=== PATIENT | male | born 1940 | race Caucasian/White ===

== ENCOUNTER 2016-12-12 10:19 | Day surgery (SDC) | payer OTHER ==
[~2016-12-12 10:19] MED LIST: Acetaminophen TAB* 325 MG PO PRN; Buffered Lidocaine 0.9% SYRIN* 5 ML/SYR SYRINGE INTRADERM ONE
[2016-12-12] MEDS ORDERED: Midazolam* 1 MG/ML 2 ML VIAL (2 MG) ONE (13:28)
[2016-12-12] MEDS ORDERED: Cyclopentolate 1% OPTH.SOL* 2 ML BTL ONE (13:58)
[2016-12-12] MEDS ORDERED: Neomycin/Polymy/Dex OPTH.SUSP* MAXITROL 0.1% 5 ML ONE (13:58)
[2016-12-12] MEDS ORDERED: Flurbiprofen 0.03% OPTH.SOL* 2.5 ML BTL ONE (13:58)
[2016-12-12] MEDS ORDERED: Buffered Lidocaine 0.9% SYRIN* 5 ML/SYR SYRINGE ONE (13:58)
[2016-12-12] MEDS ORDERED: Lidocaine 1% MPF wEPI 200,000* 30 ML SDV ONE (13:58)
[2016-12-12] MEDS ORDERED: Proparacaine 0.5% OPHTH.SOL* 15 ML BTL ONE (13:58)
[2016-12-12] MEDS ORDERED: Povidone Iodine 5% OPTH* 30 ML BTL ONE (13:58)
[2016-12-12] MEDS ORDERED: acetaZOLAMIDE TAB* 250 MG ONE (13:58)
[2016-12-12] MEDS ORDERED: Lidocaine 1% MPF* 2 ML VIAL ONE (13:58)
[2016-12-12] MEDS ORDERED: Phenylephrine 2.5% OPTH.SOL* 2 ML BTL ONE (13:58)
[2016-12-12 14:11] VITALS: BP 112/68
--- NOTE | 2016-12-13 11:09 | OP ---
DATE OF OPERATION: 12/12/16 - [facility] DATE OF : 38 SURGEON: Garcia Hendricks M.D. PREOPERATIVE DIAGNOSIS: Cataract, left eye. POSTOPERATIVE DIAGNOSIS: Cataract, left eye. OPERATIVE PROCEDURE: Phacoemulsification, left eye with IOL. DESCRIPTION OF PROCEDURE: The patient was brought to the operating room after being given 1/2% Alcaine with epinephrine drops in the preoperative area. The eye was prepped and draped in the usual sterile fashion. Sterile drape and eyelid speculum were placed. Again, topical 1/2% Alcaine with epinephrine was given. A paracentesis incision was made at the 3 o'clock position with the No.75 blade. Clear cornea incision 2.2 x 2.2-mm was created at the 6 o'clock position starting at the anterior limbus using the 2.2-mm keratome. The anterior chamber was irrigated with 0.4 mL of 1% non-preservative intracameral lidocaine and filled with DisCoVisc. A capsulorrhexis was completed using the cystotome and the Utrata forceps. Hydrodissection was performed with balanced salt solution. The lens nucleus was removed with the Phacoemulsification handpiece without incident. Cortex was removed with the irrigation-aspiration handpiece. The capsular bag was re-inflated using DisCoVisc and an [id number] implant was inserted with the shooter. The irrigation-aspiration handpiece was used to remove all residual DisCoVisc. The eye was refilled with balanced salt solution and the wound checked and found to be watertight. Topical Maxitrol drops were given. [id number]/[facility] #: [id number] MTDD
== END 2016-12-12 14:23 | disposition home or self-care (01) ==
LOC: OREAST 10:19
PROVIDERS: ATTEND Specialist
DX: H25.812 Combined forms of age-related cataract, left eye (principal); E11.3293 Type 2 diabetes mellitus with mild nonproliferative diabetic retinopathy without macular edema, bilateral; Z79.84 Long term (current) use of oral hypoglycemic drugs; I10 Essential (primary) hypertension
CPT/HCPCS: A9270-GY; J2001; J2250; V2632

== ENCOUNTER 2017-10-19 18:31 | Emergency (ER) | payer OTHER ==
[2017-10-19 18:36] VITALS: BP 149/80
[2017-10-19] MEDS ORDERED: DOXYcycline CAP(*) 100 MG ONE (19:48)
[2017-10-19] MEDS ORDERED: DOXYcycline CAP(*) 100 MG PO ONE (19:54)
--- NOTE | 2017-10-19 23:50 | ED ---
Romario Olson Tecjoon, scribed for Fide Washington MD on 10/19/17 at 1950 . Bite Injury/Animal - HPI Summary HPI Summary: This patient is a 77 year old male presenting to [facility] with a chief complaint of tick bite since 1 days ago. The tick bite was on the left flank, under the left arm, and the patient stated he picked it out, but he couldnt get the head out. There is a raised erythematous area where the tick bite occurred. The pain is rated 0/10 in severity. Symptoms aggravated by nothing. Symptoms alleviated by nothing. The patient treated the sx with nothing [place]. Patient denies any other problems at this time. - History of Current Complaint Chief Complaint: EDAnimalBite Stated Complaint: TICK BITE Time Seen by Provider: 10/19/17 19:34 Hx Obtained From: Patient Onset of Injury: Happened days ago - 1 Type of Bite: Wild Animal - tick Hx of Bite: Unprovoked Has Animal Been Immunized?: N/A Severity Initially: Mild Severity Currently: Mild Pain Intensity: 0 Pain Scale Used: 0-10 Numeric Character: Puncture Aggravating Factor(s): Nothing Alleviating Factor(s): Nothing Associated Signs And Symptoms: Positive: Erythema, Swelling Animal Available for Observation: No Animal Control Notified: No - Risk Factors Infection/Sepsis Risk Factors: Diabetes - type II, oral meds only - Allergies/Home Medications Allergies/Adverse Reactions: Allergies Allergy/AdvReac Type Severity Reaction Status Date / Time No Known Allergies Allergy Verified 10/19/17 18:36 PMH/Surg Hx/FS Hx/Imm Hx Previously Healthy: No Endocrine/Hematology History: Reports: Hx Diabetes - Type II, controlled with medication and diet Cardiovascular History: Reports: Hx Hypertension - controlled with medication Respiratory History: Reports: Other Respiratory Problems/Disorders - pleurisy Musculoskeletal History: Reports: Hx Arthritis - right shoulder injury after fall Sensory History: Reports: Hx Cataracts - right eye done 2009 Denies: Hx Contacts or Glasses - reading, Hx Glaucoma, Hx Hearing Aid Opthamlomology History: Reports: Hx Cataracts - right eye done 2009 Denies: Hx Contacts or Glasses - reading, Hx Glaucoma - Surgical History Surgery Procedure, Year, and Place: inguinal hernia, R & L, surgery in the Hx Anesthesia Reactions: No Infectious Disease History: No Infectious Disease History: Denies: Traveled Outside the [place] in Last 30 Days - Family History Known Family History: Positive: Other - neuritis, pernicious anemia - Social History Lives: Alone Alcohol Use: Rare Alcohol Amount: once a year, a beer Hx Substance Use: No Substance Use Type: Reports: None Hx Tobacco Use: No Smoking Status (MU): Never Smoked Tobacco Review of Systems Constitutional: Negative Eyes: Negative Cardiovascular: Negative Respiratory: Negative Gastrointestinal: Negative Positive: Other - raised erythematous area surrouding tick bite under left arm Neurological: Negative Psychological: Normal All Other Systems Reviewed And Are Negative: Yes Physical Exam - Summary Physical Exam Summary: Appearance: well appearing, minimal pain distress, Well-nourished, afebrile Skin: Warm, color reflects adequate perfusion, 2 cm raised erythematous area where tick bite was under left arm on lateral chest wall, No drainage, no fluctuance. Head: Normal Head/Face inspection Eyes: Conjunctiva clear ENT: Normal inspection Neck: Supple, no nodes, no JVD. Respiratory: Lungs clear, Normal breath sounds, no respiratory distress Cardio: RRR, No murmur, pulses normal, brisk capillary refill Abdomen: soft, nontender Bowel sounds: present Musculoskeletal: Strength Intact/ ROM intact. No calf tenderness. No edema. Psychological: Normal Neuro: Alert, muscle tone normal, no focal deficit Triage Information Reviewed: Yes Vital Signs On Initial Exam: Initial Vitals Temp Pulse Resp BP Pulse Ox 98.9 F 90 16 149/80 97 10/19/17 18:34 10/19/17 18:34 10/19/17 18:34 10/19/17 18:34 10/19/17 18:34 Vital Signs Reviewed: Yes Diagnostics - Vital Signs Vital Signs Temp Pulse Resp BP Pulse Ox 10/19/17 18:34 98.9 F 90 16 149/80 97 - Laboratory Lab Statement: Any lab studies that have been ordered have been reviewed, and results considered in the medical decision making process. Bite Injury Course/Dx - Course Course Of Treatment: This patient is a 77 year old male presenting to [facility] with a chief complaint of tick bite since 1 days ago. The tick bite was on the left lateral chest wall, under the left arm, and the patient stated he picked it out, but he couldnt get the head out. There is a raised erythematous area where the tick bite occurred. Pt is a type II DM on oral medication only and is well controlled. PROCEDURE: TIME OUT, Bronte precautions followed. Consent from pt prior to procedure: Tick head removal. No local anesthesia. #20 G needle used to probe wound and remove black FB consistent with tick head. No drainage. Patient will be discharged with a dx of tick bite and a prescription for doxycycline to treat possible tick exposure and Lyme disease, and possible cellulitis after pt attempts at removal at home without success, in this Type II DM pt. Patient is advised to follow up with PCP in 2 days and to discuss duration of antibiotic treatment. The patient is agreeable with this plan. - Diagnoses Differential Diagnosis/HQI/PQRI: Positive: Cellulitis, Superficial Infection, Other - FB, abscess Provider Diagnosis: Tick bite, Diabetes Discharge - Sign-Out/Discharge Documenting (check all that apply): Discharge/Admit/Transfer - Discharge Plan Condition: Stable Disposition: HOME Prescriptions: DOXYcycline CAP(*) [DOXYcycline 100MG CAP(*)] 100 mg PO BID #42 cap Patient Education Materials: Tick Bite (ED) Referrals: Honey MENESES,Tesfaye Varma [Primary Care Provider] - 2 Days Additional Instructions: We gave you one dose of doxycycl[facility]. We have also prescribed doxycycline 100mg twice a day for 3 weeks. You can discuss with your doctor about how long you should take this, but we have given you full treatment for possible Lyme disease, and to treat any infection or abscess that may be started under the site of where the tick was after you tried digging out the rest of the tick. We did a sterile procedure with a needle to try to drain any pus and remove the head and did not get any pus, and believe we removed the head of the tick. We gave you a bandaid and antibiotic ointment. You should use antibiotic ointment and a bandaid and change that every day. Have follow up with your doctor in 7-10 days definite. Return to the ER if you have any new or worsening symptoms. - Billing Disposition and Condition Condition: STABLE Disposition: HOME The documentation as recorded by the Romario beckwith Tecjoon accurately reflects the service I personally performed and the decisions made by , Fide Washington MD.
== END 2017-10-19 20:12 | disposition home or self-care (01) ==
LOC: ED 18:31
DX: S30.861A Insect bite (nonvenomous) of abdominal wall, initial encounter (principal); W57.XXXA Bitten or stung by nonvenomous insect and other nonvenomous arthropods, initial encounter; Y92.9 Unspecified place or not applicable
CPT/HCPCS: 99282; A9270-GY